=== PATIENT | male | born 1960 ===

== ENCOUNTER 2017-04-26 08:16 | Day surgery (SDC) | payer OTHER ==
[2017-04-26] MEDS ORDERED: Lactated Ringer's 500 ML IV ONE (08:55)
[2017-04-26] MEDS ORDERED: Propofol 10 mg/ml Inj (20 ML) ONE (10:11)
[2017-04-26] MEDS ORDERED: Midazolam 2 MG/2 ML VIAL ONE (10:11)
[2017-04-26 10:37] VITALS: TEMP 97; O2SAT 97
[2017-04-26 10:45] VITALS: BP 111/71; PULSE 59; RESP 17
== END 2017-04-26 11:26 | disposition home or self-care (01) ==
LOC: H.ENDO 08:16
PROVIDERS: ATTEND Internal Medicine Gastroenterology
DX: Z12.11 Encounter for screening for malignant neoplasm of colon (principal); K57.30 Diverticulosis of large intestine without perforation or abscess without bleeding; K64.0 First degree hemorrhoids
CPT/HCPCS: 45378; J2001; J2250; J2704; J7120